=== PATIENT | female | born 2000 | race African-American/Black ===

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

== ENCOUNTER 2019-06-23 20:32 | Emergency (ER) | payer SELFPAY ==
[~2019-06-23] VITALS: Ht 165.1 cm; Wt 62.0 kg
[2019-06-24] MEDS: KETOROLAC 30MG/ML VIAL IM ONE (00:48)
[2019-06-24 00:58] LABS: BASOPHILS % 0.7 % (0.0-2.0); EOSINOPHILS % 1.1 % (0.0-5.0); HEMATOCRIT. 41.8 % (36.0-48.0); HEMOGLOBIN. 14.3 g/dL (12.0-16.0); MEAN CORPUSCULAR HEMOGLOBIN 31.2 pg (28.0-32.0); MEAN CORPUSCULAR VOLUME 91.2 fL (81.0-99.0); MONOCYTES % 7.6 % (2.0-8.0); NEUTROPHILS % 58.6 % (40.0-76.0); PLATELET 217 x1000/uL (130-400); RED BLOOD CELL COUNT 4.58 mill/uL (4.2-5.4); RED CELL DISTRIBUTION WIDTH 13.3 % (11.6-14.6)
[2019-06-24 01:02] LABS: CHLORIDE 108 mEq/L (98-107)
[2019-06-24 03:47] LABS: CLARITY URINE CLOUDY (CLEAR); KETONES URINE 4+ (NEGATIVE); LEUKOCYTE ESTERASE URINE 1+ (NEGATIVE); NITRITE URINE NEGATIVE (NEGATIVE); OCCULT BLOOD URINE 3+ (NEGATIVE); PROTEIN URINE 3+ (NEGATIVE); SPECIFIC GRAVITY URINE 1.038 (1.005-1.030)
[2019-06-24 03:48] LABS: COLOR URINE BLOODY (YELLOW)
[2019-06-24 04:16] LABS: *AMPHETAMINES SCREEN URINE NEGATIVE (NEGATIVE); *BARBITURATES SCREEN URINE NEGATIVE (NEGATIVE)
[2019-06-24 04:17] LABS: *BENZODIAZEPINES SCREEN URINE NEGATIVE (NEGATIVE); *COCAINE SCREEN URINE NEGATIVE (NEGATIVE); METHADONE URINE SCREEN NEGATIVE (NEGATIVE); OPIATES URINE SCREEN NEGATIVE (NEGATIVE); PHENCYCLIDINE URINE SCREEN NEGATIVE (NEGATIVE)
[2019-06-24 04:28] LABS: CANNABINOID URINE SCREEN PRESUMTIVE POSITIVE (NEGATIVE)
[2019-06-24] MEDS: CEPHALEXIN 250MG CAPSULE PO NR (05:02)
[2019-06-24 05:45] VITALS: BP 123/59
== END 2019-06-24 05:47 | disposition home or self-care (01) ==
LOC: ER 20:32
DX: N83.201 Unspecified ovarian cyst, right side (principal); N39.0 Urinary tract infection, site not specified
CPT/HCPCS: 36415; 76830; 76856; 80053; 80305; 81003; 81025; 85025; 86850; 86900; 86901; 96372; 99284; J1885

== ENCOUNTER 2022-06-01 20:50 | Emergency (ER) | payer OTHER ==
[~2022-06-01] VITALS: Ht 165.1 cm; Wt 83.0 kg
[2022-06-01] MEDS ORDERED: GUAI600T26 MT (21:58)
[2022-06-01] MEDS ORDERED: ACET-2708 MT (21:58)
[2022-06-01] MEDS ORDERED: ONDA4TAB50 MT (21:58)
[2022-06-01 22:17] VITALS: BP 112/78
== END 2022-06-01 22:17 | disposition home or self-care (01) ==
LOC: ER 20:50
DX: B34.9 Viral infection, unspecified (principal); F17.290 Nicotine dependence, other tobacco product, uncomplicated; F12.10 Cannabis abuse, uncomplicated; Z98.890 Other specified postprocedural states; Z20.822 Contact with and (suspected) exposure to COVID-19
CPT/HCPCS: 81025; 87426; 99283; C9803

== ENCOUNTER 2022-06-04 21:21 | Emergency (ER) | payer OTHER ==
[~2022-06-04] VITALS: Ht 165.1 cm; Wt 93.3 kg
[~2022-06-04 21:21] MED LIST: ACET-2708 MT; GUAI600T26 MT; ONDA4TAB50 MT
[2022-06-04 21:44] VITALS: BP 123/73
== END 2022-06-05 00:52 | disposition home or self-care (01) ==
LOC: ER 21:21
DX: H91.91 Unspecified hearing loss, right ear (principal)
CPT/HCPCS: 99281

== ENCOUNTER 2024-10-02 16:05 | Emergency (ER) | payer MEDICAID, OTHER ==
[~2024-10-02] VITALS: Ht 165.1 cm; Wt 99.0 kg
[2024-10-02 16:12] VITALS: O2SAT 100
[2024-10-02 16:45] LABS: BASOPHILS % 0.6 % (0.0-2.0); HEMATOCRIT. 40.8 % (36.0-48.0); HEMOGLOBIN. 13.9 g/dL (12.0-16.0); LYMPHOCYTES % 52.7 % (20.0-50.0); MEAN CORPUSCULAR HEMOGLOBIN 30.7 pg (28.0-32.0); MEAN CORPUSCULAR HGB CONC 34.1 g/dL (31.0-37.0); MEAN CORPUSCULAR VOLUME 90.3 fL (81.0-99.0); MEAN PLATELET VOLUME 7.2 fl (7.4-10.4); MONOCYTES % 5.7 % (2.0-8.0); PLATELET 278 x1000/uL (130-400); RED BLOOD CELL COUNT 4.52 mill/uL (4.2-5.4); RED CELL DISTRIBUTION WIDTH 13.6 % (11.6-14.6); WHITE BLOOD COUNT 6.3 x1000/uL (4.5-11.0)
[2024-10-02 16:49] LABS: CHLORIDE 109 mEq/L (98-107); POTASSIUM 3.8 mEq/L (3.5-5.1); SODIUM 140 mEq/L (136-145)
[2024-10-02 16:50] LABS: CARBON DIOXIDE 27 mEq/L (21-32)
[2024-10-02 16:51] LABS: CALCIUM 9.1 mg/dL (8.7-10.4)
[2024-10-02 16:55] LABS: CREATININE 0.8 mg/dL (0.6-1.0); GLUCOSE 82 mg/dL (70-105); UREA NITROGEN BLOOD 10 mg/dL (9-23)
[2024-10-02 17:04] LABS: HCG SCREEN NEGATIVE
[2024-10-02 17:11] LABS: CLARITY URINE CLEAR (CLEAR); COLOR URINE YELLOW (YELLOW); GLUCOSE URINE NEGATIVE (NEGATIVE); KETONES URINE NEGATIVE (NEGATIVE); LEUKOCYTE ESTERASE URINE NEGATIVE (NEGATIVE); NITRITE URINE NEGATIVE (NEGATIVE); OCCULT BLOOD URINE NEGATIVE (NEGATIVE); PH URINE 7.5 (4.5-8.0); PROTEIN URINE NEGATIVE (NEGATIVE); UROBILINOGEN URINE 0.2 E.U./dL (0.2-1.0)
[2024-10-02 17:55] VITALS: BP 129/85; PULSE 77; RESP 16; TEMP 36.72516; O2SAT 100
== END 2024-10-02 18:00 | disposition home or self-care (01) ==
LOC: ER 16:05
DX: R42 Dizziness and giddiness (principal); F12.10 Cannabis abuse, uncomplicated
CPT/HCPCS: 36415; 80048; 81003; 84703; 85025; 93005; 99284